=== PATIENT | male | born 1985 | race Caucasian/White ===

== ENCOUNTER 2017-02-25 20:09 | Emergency (ER) | payer MEDICAID ==
[~2017-02-25] VITALS: Ht 172.7 cm; Wt 72.6 kg
[2017-02-25 20:51] VITALS: BP_SYST 130
[2017-02-25] MEDS ORDERED: KETOROLAC TROMETHAMINE 60 MG/2 ML VIAL IM ONE (21:30)
[2017-02-25 21:57] VITALS: BP_SYST 125
== END 2017-02-25 21:57 | disposition home or self-care (01) ==
LOC: SED 20:09
DX: M54.5 Low back pain (principal); G89.29 Other chronic pain; F15.10 Other stimulant abuse, uncomplicated; Z59.0 Homelessness; F10.129 Alcohol abuse with intoxication, unspecified
CPT/HCPCS: 96372; 99283; J1885